=== PATIENT | female | born 1985 | race Caucasian/White ===

== ENCOUNTER 2025-02-27 08:37 | Outpatient (CLI) | payer SELFPAY | END 2025-02-27 08:38 | disposition home or self-care (01) | PROVIDERS: Visit Provider Obstetrics & Gynecology | DX: N91.1 Secondary amenorrhea (principal); N91.5 Oligomenorrhea, unspecified | CPT/HCPCS: 82670; 83001; 83498; 83520; 84146; 84270; 84402; 84403; 84443; 84702 ==

== ENCOUNTER 2025-03-05 11:05 | Outpatient (CLI) | payer OTHER, SELFPAY ==
[2025-03-05 16:01] LABS: Chlamydia DNA Amplified* NOT DETECTED (No Detected); GC DNA Amplified* NOT DETECTED (No Detected)
[2025-03-07 19:09] LABS: HPV Source Cervix; HPV, High Risk by TMA Detected
[2025-03-08 17:07] LABS: HPV Genotype 16 by TMA Not Detected; HPV Genotype 18/45 by TMA Not Detected; HPVG Source Cervix
[2025-03-22 15:29] LABS: Pap Test Reviewed by Path Done
== END 2025-03-05 11:06 | disposition home or self-care (01) ==
PROVIDERS: PCP Registered Nurse; Visit Provider Registered Nurse
DX: Z13.6 Encounter for screening for cardiovascular disorders (principal); Z11.3 Encounter for screening for infections with a predominantly sexual mode of transmission; Z11.51 Encounter for screening for human papillomavirus (HPV); Z12.4 Encounter for screening for malignant neoplasm of cervix
CPT/HCPCS: 80061; 84702; 87491; 87591; 87624; 87625; 88141; 88142